=== PATIENT | male | born 1940 | race Caucasian/White ===

== ENCOUNTER 2017-08-12 07:05 | Day surgery (SDC) | payer MEDICARE ==
[~2017-08-12] VITALS: Ht 332.7 cm; Wt 80.7 kg
[~2017-08-12 07:05] MED LIST: AMLODIPINE BESY10 MG PO; ASPIR-LOW81 MG PO; CINNAMON500 MG PO; FUROSEMIDE20 MG PO; GLIMEPIRIDE1 MG PO; IRON325 M1 PO; LIPITOR40 MG PO; LISINOPRIL40 MG PO; METFORMIN HCL1000 MG PO; MULTIVITAMINS1 EAC8 PO; POTASSIUM CHLO10 MEQ PO; TOPROL XL100 MG PO; VITAMIN B-12500 MCG PO; VITAMIN D31000 UNI1 PO; VITAMIN E1000 UNI1 PO
== END 2017-08-12 09:08 | disposition home or self-care (01) ==
LOC: OPS 07:05 → DS 07:05 → OPS 08:30 → DS 08:30 → OPS 09:08
PROVIDERS: Ophthalmology
PROC: 08RK3JZ Replacement of Left Lens with Synthetic Substitute, Percutaneous Approach (ICD-10-PCS; principal; 2017-08-12 08:30)
DX: H25.13 Age-related nuclear cataract, bilateral (principal); D64.9 Anemia, unspecified; I10 Essential (primary) hypertension; E78.00 Pure hypercholesterolemia, unspecified; E11.9 Type 2 diabetes mellitus without complications; Z96.659 Presence of unspecified artificial knee joint; Z87.891 Personal history of nicotine dependence; Z79.82 Long term (current) use of aspirin; Z79.899 Other long term (current) drug therapy; Z79.84 Long term (current) use of oral hypoglycemic drugs; Z97.4 Presence of external hearing-aid